=== PATIENT | male | born 1935 | race Caucasian/White ===

== ENCOUNTER 2020-09-14 08:16 | Outpatient (CLI) | payer MEDICARE, OTHER | END 2020-09-14 23:59 | disposition home or self-care (01) | LOC: WOUND 08:16 | PROVIDERS: ATTEND Internal Medicine | DX: S81.812A Laceration without foreign body, left lower leg, initial encounter (principal); L03.116 Cellulitis of left lower limb; I10 Essential (primary) hypertension; L84 Corns and callosities; Z87.891 Personal history of nicotine dependence; Z96.649 Presence of unspecified artificial hip joint; Z85.828 Personal history of other malignant neoplasm of skin; X58.XXXA Exposure to other specified factors, initial encounter; Y93.89 Activity, other specified; Y92.89 Other specified places as the place of occurrence of the external cause; Y99.8 Other external cause status | CPT/HCPCS: 97597; 97598; G0463 ==

== ENCOUNTER 2020-09-21 09:19 | Outpatient (CLI) | payer MEDICARE, OTHER | END 2020-09-21 23:59 | disposition home or self-care (01) | LOC: WOUND 09:19 | PROVIDERS: ATTEND Internal Medicine | DX: S81.812D Laceration without foreign body, left lower leg, subsequent encounter (principal); L03.116 Cellulitis of left lower limb; I10 Essential (primary) hypertension; L84 Corns and callosities; Z87.891 Personal history of nicotine dependence; Z96.649 Presence of unspecified artificial hip joint; Z85.828 Personal history of other malignant neoplasm of skin; X58.XXXD Exposure to other specified factors, subsequent encounter | CPT/HCPCS: 97597; 97598 ==

== ENCOUNTER 2020-09-26 08:34 | Outpatient (CLI) | payer MEDICARE, OTHER | END 2020-09-26 23:59 | disposition home or self-care (01) | LOC: WOUND 08:34 | PROVIDERS: ATTEND Internal Medicine | DX: S81.812D Laceration without foreign body, left lower leg, subsequent encounter (principal); L03.116 Cellulitis of left lower limb; I10 Essential (primary) hypertension; L84 Corns and callosities; Z87.891 Personal history of nicotine dependence; Z96.649 Presence of unspecified artificial hip joint; Z85.828 Personal history of other malignant neoplasm of skin; X58.XXXD Exposure to other specified factors, subsequent encounter | CPT/HCPCS: 97597; 97598 ==

== ENCOUNTER 2020-09-30 12:34 | Outpatient (CLI) | payer MEDICARE, OTHER | END 2020-09-30 23:59 | disposition home or self-care (01) | LOC: CVU 12:34 | PROVIDERS: ATTEND Internal Medicine | DX: I70.203 Unspecified atherosclerosis of native arteries of extremities, bilateral legs (principal); L97.822 Non-pressure chronic ulcer of other part of left lower leg with fat layer exposed | CPT/HCPCS: 93922; 93925; 93970 ==

== ENCOUNTER → 2020-10-05 | Outpatient (CLI) | payer MEDICARE, OTHER | END | disposition home or self-care (01) | LOC: WOUND 09:04 | PROVIDERS: ATTEND Internal Medicine Cardiovascular Disease | DX: S81.812D Laceration without foreign body, left lower leg, subsequent encounter (principal); L03.116 Cellulitis of left lower limb; I70.203 Unspecified atherosclerosis of native arteries of extremities, bilateral legs; I10 Essential (primary) hypertension; L84 Corns and callosities; Z87.891 Personal history of nicotine dependence; Z96.649 Presence of unspecified artificial hip joint; Z85.828 Personal history of other malignant neoplasm of skin; X58.XXXD Exposure to other specified factors, subsequent encounter | CPT/HCPCS: G0463 ==

== ENCOUNTER → 2020-10-12 | Outpatient (CLI) | payer MEDICARE, OTHER | END | disposition home or self-care (01) | LOC: WOUND 08:21 | PROVIDERS: ATTEND Internal Medicine | DX: S81.812D Laceration without foreign body, left lower leg, subsequent encounter (principal); L03.116 Cellulitis of left lower limb; I70.203 Unspecified atherosclerosis of native arteries of extremities, bilateral legs; I10 Essential (primary) hypertension; L84 Corns and callosities; Z87.891 Personal history of nicotine dependence; Z96.649 Presence of unspecified artificial hip joint; Z85.828 Personal history of other malignant neoplasm of skin; X58.XXXD Exposure to other specified factors, subsequent encounter | CPT/HCPCS: 97597 ==

== ENCOUNTER 2020-10-26 08:25 | Outpatient (CLI) | payer MEDICARE, OTHER | END 2020-10-26 23:59 | disposition home or self-care (01) | LOC: WOUND 08:25 | PROVIDERS: ATTEND Internal Medicine | DX: S81.812D Laceration without foreign body, left lower leg, subsequent encounter (principal); L03.116 Cellulitis of left lower limb; I70.203 Unspecified atherosclerosis of native arteries of extremities, bilateral legs; I10 Essential (primary) hypertension; L84 Corns and callosities; Z87.891 Personal history of nicotine dependence; Z96.649 Presence of unspecified artificial hip joint; Z85.828 Personal history of other malignant neoplasm of skin; X58.XXXD Exposure to other specified factors, subsequent encounter | CPT/HCPCS: 97597 ==

== ENCOUNTER → 2020-11-09 | Outpatient (CLI) | payer MEDICARE, OTHER | END | disposition home or self-care (01) | LOC: WOUND 08:52 | PROVIDERS: ATTEND Internal Medicine | DX: S81.812D Laceration without foreign body, left lower leg, subsequent encounter (principal); L03.116 Cellulitis of left lower limb; I70.203 Unspecified atherosclerosis of native arteries of extremities, bilateral legs; I10 Essential (primary) hypertension; L84 Corns and callosities; Z87.891 Personal history of nicotine dependence; Z96.649 Presence of unspecified artificial hip joint; X58.XXXD Exposure to other specified factors, subsequent encounter | CPT/HCPCS: G0463 ==